=== PATIENT | male | born 1970 | race Hispanic/Latino ===

== ENCOUNTER → 2024-05-02 | Outpatient (CLI) | payer BC | END | disposition home or self-care (01) | LOC: RAH 04-18 14:19 | PROVIDERS: ATTEND Family Medicine | DX: K57.30 Diverticulosis of large intestine without perforation or abscess without bleeding (principal); R10.9 Unspecified abdominal pain; Z90.5 Acquired absence of kidney | CPT/HCPCS: 74176 ==